=== PATIENT | male | born 1975 | race Caucasian/White ===

== ENCOUNTER 2018-10-30 08:15 | Emergency (ER) | payer BC, OTHER ==
[~2018-10-30] VITALS: Ht 182.9 cm; Wt 95.3 kg
--- NOTE | 2018-10-30 08:17 | NUR ---
Pt A/Ox4, BIB [id number] FROM LOC[facility], C/O L WRIST PAIN. PT ARRIVED W/ VACUUM SPLINT APPLIED TO THE LUE BY [id number] AND 20G IV ACCESS IN R HAND. PT WAS ADMINISTERED 100 MCG OF F[place] IN THE FIELD BY [facility] BOOM STICK MAN. PT REPORTS HE WAS EXERCISING AT THE GYM DOING "BOX JUMPS" WHEN HE FELL BACKWARDS AND ATTEMPTED TO CATCH HIS FALL. PT DENIES HEAD INJURY/LOC. UPON ASSESSMENT, THERE IS DEFORMITY TO THE L WRIST. PMSC IN LUE INTACT, NORMAL, CAP REFILL < 3 SECS. VSS. PT DENIES C/P, SOB, N/V/D, DIZZINESS, HEADACHE.
--- NOTE | 2018-10-30 08:29 | NUR ---
GROUP CONTRACT ANALYST AT BEDSIDE.
[2018-10-30] MEDS ORDERED: FENTANYL CITRATE 100 MCG/2 ML AMPUL ONE ×2 (08:30→09:30)
[2018-10-30] MEDS ORDERED: ONDANSETRON 4 MG/2 ML VIAL IV ONE (08:30)
[2018-10-30] MEDS ORDERED: ONDANSETRON 4 MG/2 ML VIAL ONE (08:30)
[2018-10-30] MEDS ORDERED: FENTANYL CITRATE 100 MCG/2 ML AMPUL IV ONE ×2 (08:30→09:30)
--- NOTE | 2018-10-30 09:06 | NUR ---
SHEREE GOLDSMITH AT BEDSIDE FOR PT UPDATE.
--- NOTE | 2018-10-30 09:48 | NUR ---
SHEREE GOLDSMITH SPOKE W/ [facility] ORTHOPEDIST, DISCUSSED OPTIONS W/ PT FOR ORTHO VISIT TODAY. PT STATES HE PREFERS TO HAVE HIS GIRLFRIEND DRIVE HIM TO THE ORTHOPEDIST'S OFFICE.
--- NOTE | 2018-10-30 10:01 | NUR ---
Patient discharged to home in stable conditon. Written and verbal after care instructions given. Patient verbalizes understanding of instructions. ALL BELONGINGS W/ PT. PT SELF-AMBUALTED W/O DIFFICULTY. PT WILL BE DRIVEN BY GIRLFRIEND IN PRIVATE VEHICLE. 20G IV ACCESS IN R HAND REMOVED PRIOR TO D/C - INNER CANNULA INTACT.
[2018-10-30 10:03] VITALS: BP 144/89
== END 2018-10-30 10:04 | disposition home or self-care (01) ==
LOC: ER 08:15
DX: S52.502A Unspecified fracture of the lower end of left radius, initial encounter for closed fracture (principal); Z91.013 Allergy to seafood; W18.39XA Other fall on same level, initial encounter; Y93.89 Activity, other specified; Y92.39 Other specified sports and athletic area as the place of occurrence of the external cause; Y99.8 Other external cause status
CPT/HCPCS: 29125; 73090; 73110; 96374; 96375; 96376; 99283; J2405; J3010 ×2; A4663